=== PATIENT | male | born 1985 | race Caucasian/White ===

== ENCOUNTER 2017-12-26 11:33 | Emergency (ER) | payer OTHER ==
[~2017-12-26] VITALS: Ht 177.8 cm; Wt 81.6 kg
[2017-12-26 12:28] VITALS: BP 126/70
[2017-12-26 13:17] LABS: APPEARANCE,URINE Clear (CLEAR); BILIRUBIN,URINE Negative (NEGATIVE); BLOOD, URINE Negative Ery/uL (NEGATIVE); COLOR,URINE Yellow (YELLOW); KETONES,URINE Negative (NEGATIVE); LEUKOCYTE ESTERASE ,URINE Negative (NEGATIVE); NITRITE, URINE Negative (NEGATIVE); PROTEIN,URINE Negative (NEGATIVE); UGLUCOSE Negative (NEGATIVE); UROBILINOGEN,URINE 0.2 EU/dL (0.2)
[2017-12-26] MEDS ORDERED: IBUPROFEN 400 MG TABLET ONE (14:00)
[2017-12-26] MEDS ORDERED: IBUPROFEN 400 MG TABLET PO ONE (14:00)
== END 2017-12-26 16:06 | disposition home or self-care (01) ==
LOC: ER 11:37
DX: N43.40 Spermatocele of epididymis, unspecified (principal)
CPT/HCPCS: 76870-TC; 81000-TC; A4606; Z7610